=== PATIENT | male | born 1950 | race Hispanic/Latino ===

== ENCOUNTER 2019-01-26 19:11 | Emergency (ER) | payer SELFPAY ==
[2019-01-26 20:15] LABS: #Eosinphils 0.2 thou/uL (0.0-0.7); #Lymphocytes 1.3 thou/uL (1.20-3.40); #Monocytes 0.4 thou/uL (0.11-0.59); %Basophils 0.1 % (0.0-1.0); %Eosinophils 1.4 % (0.0-10.0); %Monocytes 3.7 % (0.0-10.0); %Neutrophils 83.8 % (42.0-75.0); Hemoglobin 15.1 g/dL (14.0-18.0); Mean Corpuscular HGB CONC 33.7 g/dL (32.0-36.0); Mean Corpuscular Hemoglobin 30.3 pg (27.0-31.0); Mean Corpuscular Volume 90.1 fL (78.0-98.0); Mean Platelet Volume 7.2 fL (7.4-10.4); Platelet Count 307 thou/uL (130-400); RBC Distribution Width 13.1 % (11.5-14.5); Red Blood Cell (RBC) Count 4.97 mill/uL (4.70-6.10)
[2019-01-26] MEDS ORDERED: Magnesium Citrate 300 ML BOT ONE (20:30)
[2019-01-26 20:31] LABS: ALT (SGPT) 31 U/L (8-55); AST (SGOT) 17 U/L (5-34); Albumin 4.4 g/dL (3.4-4.8); Alkaline Phosphatase 91 U/L (40-150); Anion Gap 16 mmol/L (10-20); BUN (Urea Nitrogen) 31 mg/dL (8.4-25.7); Bilirubin, Total 0.9 mg/dL (0.2-1.2); CK (CPK) 62 U/L (30-200); Calc. Creatinine Clearance 0 mL/min (70-130); Calcium 9.7 mg/dL (7.8-10.44); Carbon Dioxide 21 mmol/L (23-31); Chloride 105 mmol/L (98-107); Estimated GFR-MDRD 62; Globulin 3.9 g/dL (2.4-3.5); Glucose 120 mg/dL (80-115); Potassium 4.4 mmol/L (3.5-5.1); Protein, Total 8.3 g/dL (5.8-8.1); Sodium 138 mmol/L (136-145)
--- NOTE | 2019-01-26 20:37 | RAD ---
EXAM: CHEST ONE VIEW: 01/26/19 HISTORY: Dizziness and constipation. FINDINGS: Heart size is within normal limits. The lungs are clear. No confluent pneumonia, overt edema, or ple ural effusion. IMPRESSION: No significant acute intrathoracic disease. POS: [facility]
[2019-01-26 20:53] LABS: CKMB 1.5 ng/mL (0-6.6)
== END 2019-01-26 20:45 | disposition home or self-care (01) ==
LOC: ERS 19:11
DX: K59.00 Constipation, unspecified (principal); I25.2 Old myocardial infarction; I10 Essential (primary) hypertension; E78.00 Pure hypercholesterolemia, unspecified; Z87.891 Personal history of nicotine dependence; Z79.82 Long term (current) use of aspirin; Z79.899 Other long term (current) drug therapy
CPT/HCPCS: 36415; 71045; 80053; 82550; 82553; 84484; 85025; 93005